=== PATIENT | male | born 1945 | race Caucasian/White ===

== ENCOUNTER → 2016-12-16 | Outpatient (CLI) | payer MEDICARE, OTHER ==
[2016-12-16 14:38] LABS: BASO # 0.1 x10^3/uL (0.0-0.2); BASO % 1 % (0-3); EOS # 0.4 x10^3/uL (0.0-0.7); EOS % 4 % (0-3); HEMATOCRIT 39.7 % (39.0-53.0); HEMOGLOBIN 13.8 g/dL (13.0-17.5); LYMPH # 4.8 x10^3/uL (1.0-4.8); LYMPH % 40 % (24-48); MEAN CORPUSCULAR HEMOGLOBIN 33 pg (25-35); MEAN CORPUSCULAR HGB CONC 35 g/dL (31-37); MEAN CORPUSCULAR VOLUME 95 fL (79-100); MONO # 0.9 x10^3/uL (0.0-1.1); MONO % 8 % (0-9); NEUT # 5.6 x10^3uL (1.8-7.7); NEUT % 48 % (31-73); PLATELET COUNT 250 x10^3/uL (140-400); RED CELL DISTRIBUTION WIDTH 13.3 % (11.5-14.5); WHITE BLOOD COUNT 11.8 x10^3/uL (4.0-11.0)
[2016-12-16 14:44] LABS: ALBUMIN 3.7 g/dL (3.4-5.0); ALBUMIN/GLOBULIN RATIO 1.1 (1.0-1.7); CALCIUM 9.2 mg/dL (8.5-10.1); CREATININE 1.1 mg/dL (0.7-1.3); GFR 65.6; POTASSIUM 4.5 mmol/L (3.5-5.1); TOTAL BILIRUBIN 0.5 mg/dL (0.2-1.0)
== END | disposition home or self-care (01) ==
LOC: LAB 13:36
PROVIDERS: ATTEND Internal Medicine Hematology & Oncology
DX: C34.11 Malignant neoplasm of upper lobe, right bronchus or lung (principal)
CPT/HCPCS: 36415; 80053; 85027

== ENCOUNTER → 2016-12-26 | Outpatient (CLI) | payer MEDICARE, OTHER ==
[~2016-12-26] MED LIST: IOHEXOL 300 MG/ML 75 ML VIAL. IV ONE
--- NOTE | 2016-12-26 10:02 | RAD ---
CT of the chest with contrast, 12/26/2016: History: Follow-up lung cancer Multidetector CT imaging was performed following an IV bolus injection of iodinated contrast material. Comparison is made to a study from 12/28/2015 There has been a previous right upper lobectomy. There is a calcified granuloma posteriorly in the right lower lobe. There are a few scattered parenchymal scars. There is mild dependent atelectasis in both lungs. No pulmonary mass is identified. There is no evidence of pleural fluid. There is mild calcific plaquing of the thoracic aorta without evidence of aneurysm. Moderate scattered coronary artery calcifications are present. No mediastinal or hilar adenopathy is detected. A small cyst is again noted in the left lobe of the liver. Gallstones are present. No pericholecystic edema is seen. There are moderate scattered hypertrophic degenerative changes in the spine. IMPRESSION: 1. No evidence of tumor recurrence in the chest.. 2. Moderate coronary artery calcifications. 3. Cholelithiasis. PQRS Compliance Statement: One or more of the following individualized dose reduction techniques were utilized for this examination: 1. Automated exposure control 2. Adjustment of the mA and/or kV according to patient size 3. Use of iterative reconstruction technique
== END | disposition home or self-care (01) ==
LOC: CT 09:10
PROVIDERS: ATTEND Internal Medicine Hematology & Oncology
DX: I25.10 Atherosclerotic heart disease of native coronary artery without angina pectoris (principal); C34.11 Malignant neoplasm of upper lobe, right bronchus or lung; K80.20 Calculus of gallbladder without cholecystitis without obstruction
CPT/HCPCS: 71260; Q9967

== ENCOUNTER → 2017-12-22 | Outpatient (CLI) | payer MEDICARE, OTHER ==
[2017-12-22 13:01] LABS: BASO # 0.1 x10^3/uL (0.0-0.2); BASO % 1 % (0-3); EOS # 0.4 x10^3/uL (0.0-0.7); EOS % 4 % (0-3); HEMATOCRIT 40.7 % (39.0-53.0); HEMOGLOBIN 14.1 g/dL (13.0-17.5); LYMPH # 4.1 x10^3/uL (1.0-4.8); LYMPH % 36 % (24-48); MEAN CORPUSCULAR HEMOGLOBIN 33 pg (25-35); MEAN CORPUSCULAR HGB CONC 35 g/dL (31-37); MEAN CORPUSCULAR VOLUME 95 fL (79-100); MONO # 0.7 x10^3/uL (0.0-1.1); MONO % 7 % (0-9); NEUT # 5.9 x10^3uL (1.8-7.7); NEUT % 53 % (31-73); PLATELET COUNT 292 x10^3/uL (140-400); RED BLOOD COUNT 4.28 x10^6/uL (4.30-5.70); RED CELL DISTRIBUTION WIDTH 12.9 % (11.5-14.5); WHITE BLOOD COUNT 11.3 x10^3/uL (4.0-11.0)
[2017-12-22 13:09] LABS: ALBUMIN 3.6 g/dL (3.4-5.0); ALBUMIN/GLOBULIN RATIO 1.1 (1.0-1.7); CALCIUM 8.7 mg/dL (8.5-10.1); CREATININE 1.2 mg/dL (0.7-1.3); GFR 59.2; POTASSIUM 4.2 mmol/L (3.5-5.1); TOTAL BILIRUBIN 0.4 mg/dL (0.2-1.0); TOTAL PROTEIN 6.9 g/dL (6.4-8.2)
== END | disposition home or self-care (01) ==
LOC: LAB 11:57
PROVIDERS: ATTEND Internal Medicine Hematology & Oncology
DX: C34.11 Malignant neoplasm of upper lobe, right bronchus or lung (principal)
CPT/HCPCS: 36415; 80053; 85025

== ENCOUNTER → 2018-01-04 | Outpatient (CLI) | payer MEDICARE, OTHER ==
--- NOTE | 2018-01-04 09:39 | RAD ---
Examination: CT chest without contrast HISTORY: History of lung nodules COMPARISON: 12/26/2016 TECHNIQUE: Axial CT images of the chest were performed without contrast. Coronal and sagittal reformats are performed Exposure: One or more of the following individualized dose reduction techniques were utilized for this examination: 1. Automated exposure control 2. Adjustment of the mA and/or kV according to patient size 3. Use of iterative reconstruction technique. FINDINGS: The visualized thyroid gland grossly appears unremarkable. Central airways are patent. The heart size grossly appears unremarkable. Coronary artery calcifications identified. The caliber of the aorta grossly appears unremarkable. Mild aortic atherosclerosis. No radiologically significant mediastinal lymphadenopathy identified. 3 mm groundglass nodule identified in the left upper lobe lung. Calcified granuloma identified in the right lung base. Cystic structure measuring 2.1 cm identified in the liver grossly similar to prior exam likely cyst similar to prior exam. Cholelithiasis. The visualized adrenal glands grossly appears unremarkable Moderate degenerative changes thoracic spine. IMPRESSION: 1. 3 mm groundglass nodule identified in the left upper lobe of the lung grossly similar to prior exam. 2. Coronary artery calcifications. 3. Cholelithiasis. Electronically signed by: Narendra Blanchard MD (01/04/2018 9:36 AM) [id number]
== END | disposition home or self-care (01) ==
LOC: CT 08:35
PROVIDERS: ATTEND Internal Medicine Hematology & Oncology
DX: D72.829 Elevated white blood cell count, unspecified (principal); I25.10 Atherosclerotic heart disease of native coronary artery without angina pectoris; K80.20 Calculus of gallbladder without cholecystitis without obstruction; R91.8 Other nonspecific abnormal finding of lung field
CPT/HCPCS: 71250

== ENCOUNTER → 2018-11-16 | Day surgery (SDC) | payer MEDICARE, OTHER ==
[~2018-11-16] MED LIST changes: +ALBUTEROL SULFATE 2.5 MG/3 ML NEBU. NEB PRN; +ASPI-630 PO; +ATROPINE 0.5 MG/5 ML DISP.SYRIN. IV PRN; +ESOM20CA PO; -IOHEXOL 300 MG/ML 75 ML VIAL. IV ONE; +IV RINGERS SOLUTION,LACTATED 1,000 ML IV SCH; +LIDOCAINE 2% PF Vial for OR 5 ML VIAL. ONE; +LISI-378 PO; +NALOXONE 0.4 MG/ML VIAL. IV PRN; +NIFE30TA38 PO; +ONDANSETRON PF 4 MG/2 ML VIAL. IV PRN; +PROPOFOL 20 ML IV ONE; +PROPOFOL 40 ML IV ONE; +SIMV40TA PO; +TIOT18CA IH; +TRAM50TA PO; +diphenhydrAMINE 50 MG/ML VIAL IV PRN
[2018-11-16 13:43] VITALS: BP 115/69
--- NOTE | 2018-11-18 16:06 | PATHOLOGY ---
[facility] Accession Number: [id number] . 01 Material submitted: . PART A: rectum - POLYP RECTUM AT 20CM PART B: rectum - POLYP RECTUM AT 8CM . 01 Clinical history: . Screening colonoscopy . 02 Diagnosis: A. Colon, rectum, 20 cm, biopsy: - Adenomatous colonic mucosa, multiple fragments. . B. Colon, rectum, 8 cm, biopsy: - Invasive moderate to poorly differentiated adenocarcinoma. - Multiple additional fragments of adenomatous colonic mucosa. . (Please see comment) . (SKM:pe[place]ton; 11/18/2018) MBR/11/18/2018 . 02 Comment: Part B of this case has also been reviewed by Dr. Leland Clifton who agrees with the diagnosis. . The findings in this case were discussed with Dr. Dallas De Souza on 11/18/18. . (DANIAL:pe[place]; 11/18/2018) . 02 Electronically signed: . Ganesh Willingham MD, Pathologist NPI- [id number] . 01 Gross description: . A. Received in formalin labeled "Diego Braga, rectum at 20," are multiple segments of alonzo soft tissue measuring 1.8 x 1.1 x 0.2 cm in aggregate dimensions. The specimen is filtered and entirely submitted in cassette A1. . B. Received in formalin labeled "OmiAllisonh, rectum at 8," are multiple segments of alonzo soft tissue measuring 4.6 x 3.2 x 1.2 cm in aggregate dimensions. The specimen is filtered and entirely submitted in cassette B1 through B1 through B8. (TSD; 11/17/2018) TOB/TOB . 02 Pathologist provided ICD-10: C20 . 02 CPT . 752940, 240374 Specimen Comment: A courtesy copy of this report has been sent to Specimen Comment: [phone], . Specimen Comment: Report sent to / DR LAGUERRE Performed at: 01 [facility] [address] [facility] [address], [place] [id number] MD Isak Ogden MD Phone: [phone] Performed at: 02 [facility] [address] [place], [place] [id number] MD Rahul Fish MD Phone: [phone]
== END | disposition home or self-care (01) ==
LOC: SURG 11:23
PROVIDERS: ATTEND Surgery
DX: Z12.11 Encounter for screening for malignant neoplasm of colon (principal); C20 Malignant neoplasm of rectum; D12.8 Benign neoplasm of rectum; I10 Essential (primary) hypertension; K21.9 Gastro-esophageal reflux disease without esophagitis; I25.2 Old myocardial infarction; E78.5 Hyperlipidemia, unspecified; J44.9 Chronic obstructive pulmonary disease, unspecified; Z86.010 Personal history of colon polyps; Z79.82 Long term (current) use of aspirin; Z79.899 Other long term (current) drug therapy; Z87.891 Personal history of nicotine dependence; E66.9 Obesity, unspecified; Z68.35 Body mass index [BMI] 35.0-35.9, adult; Z72.89 Other problems related to lifestyle; Z98.890 Other specified postprocedural states; M19.90 Unspecified osteoarthritis, unspecified site; Z85.118 Personal history of other malignant neoplasm of bronchus and lung
CPT/HCPCS: 45385; 88305; J2704; J7120; J2001

== ENCOUNTER → 2018-12-10 | Outpatient (CLI) | payer MEDICARE, OTHER ==
[2018-11-16 13:43] VITALS: BP 115/69
[~2018-12-10] MED LIST changes: -ALBUTEROL SULFATE 2.5 MG/3 ML NEBU. NEB PRN; -ATROPINE 0.5 MG/5 ML DISP.SYRIN. IV PRN; -IV RINGERS SOLUTION,LACTATED 1,000 ML IV SCH; -LIDOCAINE 2% PF Vial for OR 5 ML VIAL. ONE; -NALOXONE 0.4 MG/ML VIAL. IV PRN; -ONDANSETRON PF 4 MG/2 ML VIAL. IV PRN; -PROPOFOL 20 ML IV ONE; -PROPOFOL 40 ML IV ONE; -diphenhydrAMINE 50 MG/ML VIAL IV PRN
[2018-12-10] MEDS: IOHEXOL 300 MG/ML 75 ML VIAL. IV ONE (08:29)
[2018-12-10] MEDS: IOHEXOL 240 MG/ML 50ML VIAL. PO ONE (08:29)
--- NOTE | 2018-12-10 09:06 | RAD ---
CT scan of the chest and abdomen with contrast 12/10/2018 CLINICAL HISTORY: History of lung cancer. Recently diagnosed rectal cancer. TECHNIQUE: After the oral and intravenous administration contrast, contiguous, 3 mm axial sections were obtained through the chest, abdomen and pelvis. 60 cc of Omnipaque 300 were administered intravenously during this examination. One or more of the following individualized dose reduction techniques were utilized for this study: 1. Automated exposure control. 2. Adjustment of the mA and/or kV according to patient size. 3. Use of iterative reconstruction technique. FINDINGS: Comparison study is dated 01/04/2018. Surgical clips are seen within the right hilum and mediastinum. The patient is post right upper lobectomy. No hilar, mediastinal or axillary lymphadenopathy is seen. Atherosclerotic calcification of the thoracic aorta and its branches is noted. The thoracic aorta is tortuous but tapers normally. Extensive coronary artery calcifications are seen. The heart is normal in size. A 7 mm calcified granuloma seen involving the right lower lobe. This is unchanged. No noncalcified pulmonary nodule is seen. No acute pulmonary infiltrate is noted. No pneumothorax or pleural effusion is seen. A 2.3 cm rounded low-attenuation lesion is seen involving left lobe of the liver consistent with a hepatic cyst. This is unchanged. The spleen, pancreas, adrenal glands and right kidney are within normal limits. A 8 mm rounded low-attenuation lesion is seen involving the midpole of the left kidney. Likely represents a cyst. A 3 mm nonobstructing calculus is seen involving the mid/lower pole of the left kidney. Atherosclerotic calcification abdominal aorta and its branches is seen. The abdominal aorta tapers normally. Calcified gallstones are seen within the gallbladder which is contracted. No free fluid or free air is within the abdomen. There is no evidence of bowel obstruction. A midline ventral hernia is seen which contains fat. The hernia sac measures 8.2 cm in greatest diameter. No retroperitoneal lymphadenopathy is seen. Very mild S-shaped curvature of the thoracolumbar spine is seen. Degenerative changes are seen involving the thoracic and lumbar spine. IMPRESSION: No acute abnormality is seen. There is no CT evidence of recurrent or metastatic disease involving the chest or abdomen. Electronically signed by: Gonsalo Shaikh MD (12/10/2018 9:03 AM) [id number]
== END | disposition home or self-care (01) ==
LOC: CT 07:48
PROVIDERS: ATTEND Internal Medicine Hematology & Oncology
DX: C20 Malignant neoplasm of rectum (principal); I70.0 Atherosclerosis of aorta; I77.810 Thoracic aortic ectasia; I25.10 Atherosclerotic heart disease of native coronary artery without angina pectoris; J84.10 Pulmonary fibrosis, unspecified; K76.9 Liver disease, unspecified; K80.20 Calculus of gallbladder without cholecystitis without obstruction; K82.0 Obstruction of gallbladder; K43.9 Ventral hernia without obstruction or gangrene; Z85.118 Personal history of other malignant neoplasm of bronchus and lung; Z92.21 Personal history of antineoplastic chemotherapy; Z90.2 Acquired absence of lung [part of]
CPT/HCPCS: 71260; 74160; Q9966; Q9967

== ENCOUNTER → 2019-01-28 | Outpatient (CLI) | payer MEDICARE, OTHER ==
[2018-11-16 13:43] VITALS: BP 115/69
[~2019-01-28] MED LIST changes: +IOHEXOL 240 MG/ML 50ML VIAL. ONE; +IOHEXOL 300 MG/ML 75 ML VIAL. IV ONE
--- NOTE | 2019-01-28 16:30 | RAD ---
CT of the abdomen with contrast, 01/28/2019: HISTORY: Recent surgery, hot and cold flashes, possible ascites Multidetector CT imaging was performed following oral and IV administration of contrast. Comparison is made to a study from 12/10/2018. Extensive coronary artery calcifications are present. A calcified granuloma is present in the right base. There is a simple appearing cyst in the left lobe of the liver. No bile duct dilatation is seen. Dense gallstones are present in the gallbladder. The gallbladder wall is not thickened and no pericholecystic edema is evident. The pancreas shows no abnormality. The spleen is of normal size. There is a tiny intrarenal calculus on the left. The renal collecting systems are not dilated. There is a tiny low-density lesion in the anterior aspect of the left kidney which is too small to definitively characterize but is probably a cyst. The adrenal glands are unremarkable. There is moderate aortoiliac calcific plaquing no abdominal adenopathy is seen. The bowel loops are not dilated. No free fluid or free air is evident in the abdomen. There is streaky increased density in the subcutaneous soft tissues of the lower abdomen compatible with postsurgical change. This lies near the level where a fat-containing umbilical hernia was evident on the previous study. Within this area of apparent inflammation there is a 2.7 x 4.8 cm structure containing gas and fluid. This may represent a seroma/hematoma, infected hematoma or abscess. Moderate multilevel degenerative changes are present in the spine. IMPRESSION: 1. Cholelithiasis. 2. Hepatic and left renal cysts. 3. Nonobstructing left intrarenal calculus. 4. Extensive coronary artery calcifications. 5. Postsurgical change involving the anterior abdominal wall with a small subcutaneous fluid collection as described above. Abscess is a possibility. Note: The findings were called to personnel in Dr. Hernandez's office at 4:26 PM on 01/28/2019. They will relay this report to him. PQRS Compliance Statement: One or more of the following individualized dose reduction techniques were utilized for this examination: 1. Automated exposure control 2. Adjustment of the mA and/or kV according to patient size 3. Use of iterative reconstruction technique Electronically signed by: Akin Javier MD (01/28/2019 4:27 PM) [facility]
== END | disposition home or self-care (01) ==
LOC: CT 10:16
PROVIDERS: ATTEND Family Medicine
DX: K80.20 Calculus of gallbladder without cholecystitis without obstruction (principal); N20.0 Calculus of kidney; I70.0 Atherosclerosis of aorta; I25.10 Atherosclerotic heart disease of native coronary artery without angina pectoris; I70.8 Atherosclerosis of other arteries; K42.9 Umbilical hernia without obstruction or gangrene; J84.10 Pulmonary fibrosis, unspecified; K76.89 Other specified diseases of liver; I10 Essential (primary) hypertension
CPT/HCPCS: 74160; Q9967

== ENCOUNTER 2019-02-05 10:31 | Emergency (ER) | payer MEDICARE, OTHER ==
[~2019-02-05 10:31] MED LIST changes: -IOHEXOL 240 MG/ML 50ML VIAL. ONE; -IOHEXOL 300 MG/ML 75 ML VIAL. IV ONE
[2019-02-05 10:47] VITALS: BP 164/69
--- NOTE | 2019-02-05 11:28 | PHYS DOC ---
Past History Past Medical History: High Cholesterol, Hypertension Alcohol Use: None Drug Use: None Adult General Chief Complaint Chief Complaint: WOUND CHECK HPI HPI 73-year-old male presents with fluid leaking from his abdominal incision. The patient had abdominal surgery. His incision has been healing well. The patient has had drainage that is a light yellow color this started to come out of a small hole in the incision yesterday. It continues to ooze out slowly today. Patient denies any fever or chills. It is not painful. The patient had a CT scan recently to see how things are doing. There was some concern for possible abscess. He followed up with surgical consult and they determined that was no abscess. This was all prior to the drainage. Patient is feeling pretty normal. He is wants to make sure this drainage isn't a problem. He is already on Augmen tin. Review of Systems Review of Systems Constitutional: Denies fever or chills [] Eyes: Denies change in visual acuity, redness, or eye pain [] HENT: Denies nasal congestion or sore throat [] Respiratory: Denies cough or shortness of breath [] Cardiovascular: No additional information not addressed in HPI [] GI: Denies abdominal pain, nausea, vomiting, bloody stools or diarrhea [] : Denies dysuria or hematuria [] Musculoskeletal: Denies back pain or joint pain [] Integument: Fluid leaking from central abdominal incision site[] Neurologic: Denies headache, focal weakness or sensory changes [] Endocrine: Denies polyuria or polydipsia [] All other systems were reviewed and found to be within normal limits, except as documented in this note. Allergies Allergies Allergies Coded Allergies Type Severity Reaction Last Updated Verified No Known Drug Allergies 12/22/14 No Physical Exam Physical Exam Constitutional: Well developed, well nourished, no acute distress, non-toxic appearance. [] HENT: Normocephalic, atraumatic, bilateral external ears normal, oropharynx moist, no oral exudates, nose normal. [] Eyes: PERRLA, EOMI, conjunctiva normal, no discharge. [] Neck: Normal range of motion, no tenderness, supple, no stridor. [] Cardiovascular:Heart rate regular rhythm, no murmur [] Lungs & Thorax: Bilateral breath sounds clear to auscultation [] Abdomen: Bowel sounds normal, soft, no tenderness, no masses, no pulsatile masses. [] Skin: Light yellow fluid oozing from a 2 mm along the central incision of the patient's abdomen. No pain with palpation, no erythema or warmth.[] Back: No tenderness, no CVA tenderness. [] Extremities: No tenderness, no cyanosis, no clubbing, ROM intact, no edema. [] Neurologic: Alert and oriented X 3, normal motor function, normal sensory function, no focal deficits noted. [] Psychologic: Affect normal, judgement normal, mood normal. [] Current Patient Data Vital Signs Vital Signs Date Time Temp Pulse Resp B/P (MAP) Pulse Ox O2 Delivery O2 Flow Rate FiO2 02/05/19 10:47 98.1 74 18 99 Room Air EKG EKG [] Radiology/Procedures Radiology/Procedures [] Course & Med Decision Making Course & Med Decision Making Pertinent Labs and Imaging studies reviewed. (See chart for details) The fluid does not appear to be infectious. It is a thin serous color. I did go ahead and collect some of the fluid and sent to the lab as a culture. He is already on antibiotics. I do not see overt signs of infection. I have advised that he notify the surgeon of this new finding. I believe he can be safely discharged. I have explained to the patient if the area becomes red and hot expanding outward from his normal incision, that this could be a sign of infection. I also told him that he must immediately return if he develops a fever. I performed a bedside ultrasound which showed a possible fluid collection 2 inches below the area of drainage. This fluid collection is roughly 2 cm by a 2-1/2 cm. It is about 2 cm deep below the skin. We will cover the wound with clean gauze to help absorb the fluid. Patient is stable for discharge at this time. [] Dragon Disclaimer Dragon Disclaimer This electronic medical record was generated, in whole or in part, using a voice recognition dictation system. Departure Departure: Impression: Primary Impression: Seroma, postoperative Disposition: 01 HOME, SELF-CARE Condition: STABLE Referrals: LIDIA LAGUERRE MD (PCP) Patient Instructions: Wound Check Problem Qualifiers Primary Impression: Seroma, postoperative Surgical complication system/body Area: digestive system Procedure type: digestive system Qualified Codes: K91.872 - Postprocedural seroma of a digestive system organ or structure following a digestive system procedure CARRILLO WARREN DO Feb 05, 2019 11:28
== END 2019-02-05 11:30 | disposition home or self-care (01) ==
LOC: ER 10:31
DX: K91.872 Postprocedural seroma of a digestive system organ or structure following a digestive system procedure (principal); E78.00 Pure hypercholesterolemia, unspecified; I10 Essential (primary) hypertension
CPT/HCPCS: 87070; 99285

== ENCOUNTER → 2019-06-27 | Outpatient (CLI) | payer MEDICARE, OTHER ==
[~2019-06-27] MED LIST changes: +NIFE-11 PO; -NIFE30TA38 PO
[2019-06-27 14:40] LABS: BASO # 0.1 x10^3/uL (0.0-0.2); BASO % 1 % (0-3); EOS # 0.3 x10^3/uL (0.0-0.7); EOS % 2 % (0-3); HEMATOCRIT 41.4 % (39.0-53.0); HEMOGLOBIN 14.1 g/dL (13.0-17.5); LYMPH # 5.1 x10^3/uL (1.0-4.8); LYMPH % 44 % (24-48); MEAN CORPUSCULAR HEMOGLOBIN 32 pg (25-35); MEAN CORPUSCULAR HGB CONC 34 g/dL (31-37); MEAN CORPUSCULAR VOLUME 94 fL (79-100); MONO # 1.1 x10^3/uL (0.0-1.1); MONO % 9 % (0-9); NEUT # 5.1 x10^3uL (1.8-7.7); NEUT % 44 % (31-73); PLATELET COUNT 292 x10^3/uL (140-400); RED BLOOD COUNT 4.39 x10^6/uL (4.30-5.70); RED CELL DISTRIBUTION WIDTH 13.4 % (11.5-14.5); WHITE BLOOD COUNT 11.7 x10^3/uL (4.0-11.0)
[2019-06-27 14:53] LABS: ALBUMIN 3.5 g/dL (3.4-5.0); ALBUMIN/GLOBULIN RATIO 1.1 (1.0-1.7); CALCIUM 8.6 mg/dL (8.5-10.1); CREATININE 1.2 mg/dL (0.7-1.3); GFR 58.9; POTASSIUM 4.3 mmol/L (3.5-5.1); TOTAL BILIRUBIN 0.5 mg/dL (0.2-1.0); TOTAL PROTEIN 6.8 g/dL (6.4-8.2)
== END | disposition home or self-care (01) ==
LOC: LAB 14:03
PROVIDERS: ATTEND Internal Medicine Hematology & Oncology
DX: C20 Malignant neoplasm of rectum (principal)
CPT/HCPCS: 36415; 80053; 82378; 85025

== ENCOUNTER → 2019-09-06 | Outpatient (CLI) | payer MEDICARE, OTHER ==
[2019-09-06 14:02] LABS: BASO # 0.1 x10^3/uL (0.0-0.2); BASO % 1 % (0-3); EOS # 0.2 x10^3/uL (0.0-0.7); EOS % 2 % (0-3); HEMATOCRIT 43.7 % (39.0-53.0); HEMOGLOBIN 14.6 g/dL (13.0-17.5); LYMPH # 4.6 x10^3/uL (1.0-4.8); LYMPH % 43 % (24-48); MEAN CORPUSCULAR HEMOGLOBIN 32 pg (25-35); MEAN CORPUSCULAR HGB CONC 34 g/dL (31-37); MEAN CORPUSCULAR VOLUME 96 fL (79-100); MONO % 9 % (0-9); NEUT # 4.9 x10^3uL (1.8-7.7); NEUT % 46 % (31-73); PLATELET COUNT 292 x10^3/uL (140-400); RED BLOOD COUNT 4.55 x10^6/uL (4.30-5.70); RED CELL DISTRIBUTION WIDTH 13.1 % (11.5-14.5); WHITE BLOOD COUNT 10.9 x10^3/uL (4.0-11.0)
[2019-09-06 16:43] LABS: ALBUMIN 3.6 g/dL (3.4-5.0); ALBUMIN/GLOBULIN RATIO 1.1 (1.0-1.7); CALCIUM 9.1 mg/dL (8.5-10.1); CREATININE 1.1 mg/dL (0.7-1.3); GFR 65.1; POTASSIUM 4.7 mmol/L (3.5-5.1); TOTAL BILIRUBIN 0.4 mg/dL (0.2-1.0)
== END | disposition home or self-care (01) ==
LOC: LAB 13:21
PROVIDERS: ATTEND Internal Medicine Hematology & Oncology
DX: C20 Malignant neoplasm of rectum (principal)
CPT/HCPCS: 36415; 80053; 82378; 85025

== ENCOUNTER → 2019-11-29 | Outpatient (CLI) | payer MEDICARE, OTHER ==
[2019-11-29 13:44] LABS: BASO % 0 % (0-3); EOS # 0.2 x10^3/uL (0.0-0.7); EOS % 1 % (0-3); HEMATOCRIT 42.5 % (39.0-53.0); HEMOGLOBIN 14.1 g/dL (13.0-17.5); LYMPH # 4.9 x10^3/uL (1.0-4.8); LYMPH % 40 % (24-48); MEAN CORPUSCULAR HEMOGLOBIN 32 pg (25-35); MEAN CORPUSCULAR HGB CONC 33 g/dL (31-37); MEAN CORPUSCULAR VOLUME 97 fL (79-100); MONO % 8 % (0-9); NEUT # 6.2 x10^3uL (1.8-7.7); NEUT % 50 % (31-73); PLATELET COUNT 318 x10^3/uL (140-400); RED BLOOD COUNT 4.39 x10^6/uL (4.30-5.70); RED CELL DISTRIBUTION WIDTH 12.8 % (11.5-14.5); WHITE BLOOD COUNT 12.3 x10^3/uL (4.0-11.0)
[2019-11-29 14:02] LABS: ALBUMIN 3.5 g/dL (3.4-5.0); CREATININE 1.1 mg/dL (0.7-1.3); GFR 65.1; POTASSIUM 4.2 mmol/L (3.5-5.1); TOTAL BILIRUBIN 0.3 mg/dL (0.2-1.0); TOTAL PROTEIN 7.1 g/dL (6.4-8.2)
== END | disposition home or self-care (01) ==
LOC: LAB 12:33
PROVIDERS: ATTEND Internal Medicine Hematology & Oncology
DX: C20 Malignant neoplasm of rectum (principal)
CPT/HCPCS: 36415; 80053; 82378; 85025

== ENCOUNTER → 2019-12-05 | Outpatient (CLI) | payer MEDICARE, OTHER ==
[~2019-12-05] MED LIST changes: +IOHEXOL 240 MG/ML 50ML VIAL. ONE; +IOHEXOL 240 MG/ML 50ML VIAL. PO ONE; +IOHEXOL 300 MG/ML 75 ML VIAL. IV ONE
--- NOTE | 2019-12-05 12:21 | RAD ---
CT CHEST ABD PELVIS W/CONTRAST Clinical Indication: Rectal cancer COMPARISON: 01/20/2019 TECHNIQUE: Multiple contiguous axial images were obtained throughout the chest, abdomen, and pelvis with the use of IV contrast. Axial images were reformatted into coronal and sagittal planes. 75 mL Omnipaque 350 was administered. One or more of the following dose reduction techniques were utilized: Automated exposure control (AEC), Adjustment of mA and/or kV according to patient size, Use of iterative reconstruction technique such as ASiR, CT scan done according to ALARA and image gently/image wisely. Findings: The thyroid is symmetric. There is no axillary, mediastinal, or hilar adenopathy. Atherosclerosis of the thoracic aorta The cardiac size is normal. Coronary artery atherosclerotic disease There is no pericardial effusion. The central airways are patent. Postsurgical changes of right upper lobectomy. No pulmonary mass or consolidation. Centrilobular emphysema. Calcified pulmonary granuloma. No pleural effusion is observed. There is no pneumothorax. Stable hepatic cyst. The liver, spleen, pancreas, and adrenal glands are otherwise unremarkable. Cholelithiasis. The kidneys are unremarkable. There is no significant mesenteric or retroperitoneal adenopathy identified. There is no evidence of free intraperitoneal fluid or pneumoperitoneum. Rectosigmoid anastomosis. Otherwise, normal caliber large and small bowel. Normal appendix. The bladder and distal ureters are unremarkable. There is no significant pelvic ascites. No significant iliac or inguinal adenopathy is identified. Moderate aortoiliac atherosclerotic disease. Prominent infraumbilical abdominal wall hernia containing loops of normal caliber bowel and part of the bladder. Fat-containing bilateral inguinal hernias. No aggressive lytic or blastic osseous lesions IMPRESSION: No evidence of recurrent or metastatic disease. No mass or lymphadenopathy. Electronically signed by: Zechariah Landrum MD (12/05/2019 12:18 PM) [id number]
== END | disposition home or self-care (01) ==
LOC: CT 09:30
PROVIDERS: ATTEND Internal Medicine Hematology & Oncology
DX: C20 Malignant neoplasm of rectum (principal); J43.2 Centrilobular emphysema; K40.20 Bilateral inguinal hernia, without obstruction or gangrene, not specified as recurrent; K42.9 Umbilical hernia without obstruction or gangrene; K80.20 Calculus of gallbladder without cholecystitis without obstruction; I25.10 Atherosclerotic heart disease of native coronary artery without angina pectoris; I70.0 Atherosclerosis of aorta; J84.10 Pulmonary fibrosis, unspecified; K76.89 Other specified diseases of liver
CPT/HCPCS: 71260; 74177; Q9966; Q9967

== ENCOUNTER → 2019-12-23 | Outpatient (CLI) | payer MEDICARE, OTHER ==
[~2019-12-23] MED LIST changes: -IOHEXOL 240 MG/ML 50ML VIAL. ONE; -IOHEXOL 240 MG/ML 50ML VIAL. PO ONE; -IOHEXOL 300 MG/ML 75 ML VIAL. IV ONE
--- NOTE | 2019-12-23 16:20 | RAD ---
LUMBAR SPINE 2-3V History: Low back pain Comparison: None. Findings: 3 views of the lumbar spine are submitted. Lumbar vertebral body stature is maintained. There is grade 1 anterior spondylolisthesis at L4-5 and negligible posterior subluxation L3 relative L4. There is moderate to severe degenerative disc disease at L3-4, to lesser degree at L4-5 and L2-3 and minimally at L5-S1. There is multilevel spondylosis greatest L2-3 through L4-5. There is multilevel lumbar facet degenerative change greater inferiorly of the lumbar spine. There is diffuse atherosclerotic calcification of the abdominal aorta. There is very mild lumbar levoscoliosis. Impression: 1. There is multilevel lumbar degenerative disc disease greatest at L3-4. There is multilevel lumbar spondylosis and facet degenerative change. There is mild abnormal alignment as stated. Electronically signed by: Zechariah Quintana MD (12/23/2019 4:17 PM) [id number]
== END | disposition home or self-care (01) ==
LOC: DXRAD 14:49
PROVIDERS: ATTEND Family Medicine
DX: M47.816 Spondylosis without myelopathy or radiculopathy, lumbar region (principal); M51.37 Other intervertebral disc degeneration, lumbosacral region; M43.16 Spondylolisthesis, lumbar region; I70.0 Atherosclerosis of aorta
CPT/HCPCS: 72100

== ENCOUNTER → 2020-03-07 | Outpatient (CLI) | payer MEDICARE, OTHER ==
[2020-03-07 14:08] LABS: BASO # 0.1 x10^3/uL (0.0-0.2); BASO % 1 % (0-3); EOS # 0.2 x10^3/uL (0.0-0.7); EOS % 2 % (0-3); HEMATOCRIT 42.2 % (39.0-53.0); HEMOGLOBIN 14.1 g/dL (13.0-17.5); LYMPH # 5.2 x10^3/uL (1.0-4.8); LYMPH % 46 % (24-48); MEAN CORPUSCULAR HEMOGLOBIN 33 pg (25-35); MEAN CORPUSCULAR HGB CONC 34 g/dL (31-37); MEAN CORPUSCULAR VOLUME 97 fL (79-100); MONO % 9 % (0-9); NEUT # 4.8 x10^3uL (1.8-7.7); NEUT % 43 % (31-73); PLATELET COUNT 306 x10^3/uL (140-400); RED BLOOD COUNT 4.34 x10^6/uL (4.30-5.70); RED CELL DISTRIBUTION WIDTH 12.8 % (11.5-14.5); WHITE BLOOD COUNT 11.3 x10^3/uL (4.0-11.0)
[2020-03-07 14:22] LABS: ALBUMIN 3.6 g/dL (3.4-5.0); CALCIUM 9.2 mg/dL (8.5-10.1); CREATININE 1.3 mg/dL (0.7-1.3); GFR 53.7; POTASSIUM 4.2 mmol/L (3.5-5.1); TOTAL BILIRUBIN 0.6 mg/dL (0.2-1.0); TOTAL PROTEIN 7.1 g/dL (6.4-8.2)
== END | disposition home or self-care (01) ==
LOC: LAB 13:39
PROVIDERS: ATTEND Internal Medicine Hematology & Oncology
DX: C20 Malignant neoplasm of rectum (principal)
CPT/HCPCS: 36415; 80053; 82378; 85025

== ENCOUNTER → 2020-05-29 | Outpatient (CLI) | payer MEDICARE, OTHER ==
[2020-05-29 14:26] LABS: BASO # 0.1 x10^3/uL (0.0-0.2); BASO % 1 % (0-3); EOS # 0.3 x10^3/uL (0.0-0.7); EOS % 3 % (0-3); HEMATOCRIT 42.4 % (39.0-53.0); HEMOGLOBIN 14.2 g/dL (13.0-17.5); LYMPH # 4.4 x10^3/uL (1.0-4.8); LYMPH % 39 % (24-48); MEAN CORPUSCULAR HEMOGLOBIN 33 pg (25-35); MEAN CORPUSCULAR HGB CONC 34 g/dL (31-37); MEAN CORPUSCULAR VOLUME 97 fL (79-100); MONO # 0.9 x10^3/uL (0.0-1.1); MONO % 8 % (0-9); NEUT # 5.6 x10^3uL (1.8-7.7); NEUT % 50 % (31-73); PLATELET COUNT 297 x10^3/uL (140-400); RED BLOOD COUNT 4.36 x10^6/uL (4.30-5.70); RED CELL DISTRIBUTION WIDTH 13.1 % (11.5-14.5); WHITE BLOOD COUNT 11.3 x10^3/uL (4.0-11.0)
[2020-05-29 14:34] LABS: ALBUMIN 3.6 g/dL (3.4-5.0); ALBUMIN/GLOBULIN RATIO 1.1 (1.0-1.7); CALCIUM 9.2 mg/dL (8.5-10.1); CREATININE 1.1 mg/dL (0.7-1.3); GFR 64.9; POTASSIUM 4.1 mmol/L (3.5-5.1); TOTAL BILIRUBIN 0.4 mg/dL (0.2-1.0)
[2020-05-29 15:02] LABS: % ATYL 20 % (0-0); % BANDS 3 % (0-9); % EOS 1 % (0-5); % LYMPHS 24 % (24-48); % MONOS 9 % (0-10); % SEGS 43 % (35-66)
[2020-05-29 15:03] LABS: PLT ESTIMATE ADEQUATE (ADEQUATE)
== END ==
LOC: LAB 13:35
PROVIDERS: ATTEND Internal Medicine Hematology & Oncology
DX: C20 Malignant neoplasm of rectum (principal)
CPT/HCPCS: 36415; 80053; 82378; 85007; 85025

== ENCOUNTER → 2020-09-11 | Outpatient (CLI) | payer MEDICARE, OTHER ==
[2020-09-11 14:43] LABS: BASO % 0 % (0-3); EOS # 0.1 x10^3/uL (0.0-0.7); EOS % 1 % (0-3); HEMATOCRIT 44.6 % (39.0-53.0); HEMOGLOBIN 14.9 g/dL (13.0-17.5); LYMPH % 47 % (24-48); MEAN CORPUSCULAR HEMOGLOBIN 32 pg (25-35); MEAN CORPUSCULAR HGB CONC 33 g/dL (31-37); MEAN CORPUSCULAR VOLUME 96 fL (79-100); MONO # 0.9 x10^3/uL (0.0-1.1); MONO % 9 % (0-9); NEUT # 4.5 x10^3uL (1.8-7.7); NEUT % 43 % (31-73); PLATELET COUNT 327 x10^3/uL (140-400); RED BLOOD COUNT 4.63 x10^6/uL (4.30-5.70); RED CELL DISTRIBUTION WIDTH 12.8 % (11.5-14.5); WHITE BLOOD COUNT 10.6 x10^3/uL (4.0-11.0)
[2020-09-11 14:46] LABS: ALBUMIN 3.6 g/dL (3.4-5.0); CALCIUM 8.9 mg/dL (8.5-10.1); CREATININE 1.2 mg/dL (0.7-1.3); GFR 58.7; POTASSIUM 4.4 mmol/L (3.5-5.1); TOTAL BILIRUBIN 0.3 mg/dL (0.2-1.0); TOTAL PROTEIN 7.1 g/dL (6.4-8.2)
== END ==
LOC: LAB 14:01
PROVIDERS: ATTEND Internal Medicine Hematology & Oncology
DX: C20 Malignant neoplasm of rectum (principal)
CPT/HCPCS: 36415; 80053; 82378; 85025

== ENCOUNTER → 2020-10-26 | Outpatient (CLI) | payer MEDICARE, OTHER ==
--- NOTE | 2020-10-26 16:56 | RAD ---
CT of the chest without contrast 10/26/2020 INDICATION: History of lung cancer. History of right upper lobectomy. COMPARISON STUDY: CT of the chest abdomen and pelvis December 05, 2019. TECHNIQUE: Multidetector CT imaging of the chest was performed without contrast FINDINGS: Heart size is normal. No pericardial effusion is seen. Dense coronary calcification noted. No pathologically enlarged mediastinal lymph nodes are identified. There is no pneumothorax or pleural effusion. Mild centrilobular emphysematous changes noted. There i s a 3 mm noncalcified nodule in the left upper lobe, similar to prior exam allowing for differences i n slice selection and technique (axial image 34). There is a 4 mm groundglass nodule in the left uppe r lobe which is unchanged (axial image 45). Postsurgical changes in the right hilum are similar. Calc ified granuloma noted in the right lower lobe. Limited visualization of the upper abdomen demonstrate s no acute abnormality. Cholelithiasis noted. Hepatic cysts noted. No acute osseous changes are ident ified. IMPRESSION: 1. No evidence of acute cardiopulmonary process or acute change from prior exam 2. 2 small sub-5 mm pulmonary nodules on the left are grossly unchanged. Attention on follow-up studi es recommended. CT DOSING PQRS STATEMENT: One or more of the following individualized dose reduction techniques were utilized for this examinat ion: 1. Automated exposure control 2. Adjustment of the mA and/or kV according to patient size 3. Use of iterative reconstruction technique Electronically signed by: Santi Kessler MD (10/26/2020 4:54 PM) [id number]
== END ==
LOC: CT 11:09
PROVIDERS: ATTEND Internal Medicine Pulmonary Disease
DX: J43.2 Centrilobular emphysema (principal); R91.1 Solitary pulmonary nodule; Z90.2 Acquired absence of lung [part of]; Z85.118 Personal history of other malignant neoplasm of bronchus and lung
CPT/HCPCS: 71250

== ENCOUNTER → 2020-12-11 | Outpatient (CLI) | payer MEDICARE, OTHER ==
[2020-12-11 14:40] LABS: BASO # 0.1 x10^3/uL (0.0-0.2); BASO % 1 % (0-3); EOS # 0.2 x10^3/uL (0.0-0.7); EOS % 2 % (0-3); HEMATOCRIT 44.2 % (39.0-53.0); HEMOGLOBIN 14.8 g/dL (13.0-17.5); LYMPH # 5.5 x10^3/uL (1.0-4.8); LYMPH % 41 % (24-48); MEAN CORPUSCULAR HEMOGLOBIN 32 pg (25-35); MEAN CORPUSCULAR HGB CONC 34 g/dL (31-37); MEAN CORPUSCULAR VOLUME 96 fL (79-100); MONO # 1.3 x10^3/uL (0.0-1.1); MONO % 10 % (0-9); NEUT # 6.3 x10^3uL (1.8-7.7); NEUT % 47 % (31-73); PLATELET COUNT 328 x10^3/uL (140-400); RED BLOOD COUNT 4.63 x10^6/uL (4.30-5.70); RED CELL DISTRIBUTION WIDTH 12.7 % (11.5-14.5); WHITE BLOOD COUNT 13.3 x10^3/uL (4.0-11.0)
[2020-12-11 14:54] LABS: ALBUMIN 3.8 g/dL (3.4-5.0); CALCIUM 9.4 mg/dL (8.5-10.1); CREATININE 1.1 mg/dL (0.7-1.3); GFR 64.9; POTASSIUM 4.5 mmol/L (3.5-5.1); TOTAL BILIRUBIN 0.5 mg/dL (0.2-1.0); TOTAL PROTEIN 7.5 g/dL (6.4-8.2)
--- NOTE | 2020-12-11 16:54 | RAD ---
INDICATION: Reason: KNEE PAIN / Spl. Instructions: / History: COMPARISON: None. IMPRESSION: Left knee: 4 views obtained. Moderate to severe degenerative changes are identified with mild lateral subluxation of the tibia in relation to the distal femur. Osteophyte formation as well as subchondra l sclerosis and joint space narrowing is identified most severe at the medial and patellofemoral comp artment. Calcific atherosclerosis. Edema of soft tissues. Small joint effusion. Ossific fragments are seen adjacent to the tibia tubercle region as well as adjacent to the patella and could be from oste ophyte formation. Posteriorly there is an ossific density seen which could be from fabella or loose b dayanna. No acute fracture or dislocation. Electronically signed by: Lokesh Cutler MD (12/11/2020 4:52 PM) [id number]
== END ==
LOC: RAD 13:46
PROVIDERS: ATTEND Orthopaedic Surgery
DX: M17.12 Unilateral primary osteoarthritis, left knee (principal); M25.78 Osteophyte, vertebrae; M25.462 Effusion, left knee
CPT/HCPCS: 36415; 73562; 80053; 82378; 85025

== ENCOUNTER → 2020-12-17 | Outpatient (CLI) | payer MEDICARE, OTHER ==
[~2020-12-17] MED LIST changes: +IOHEXOL 240 MG/ML 50ML VIAL. ONE; +IOHEXOL 240 MG/ML 50ML VIAL. PO ONE; +IOHEXOL 300 MG/ML 75 ML VIAL. IV ONE
--- NOTE | 2020-12-17 12:27 | RAD ---
EXAM: Chest, abdomen and pelvis CT with intravenous contrast. HISTORY: Rectal and lung cancer restaging. TECHNIQUE: Computed tomographic images of the chest, abdomen and pelvis were obtained following the a dministration of intravenous contrast. Multiplanar reformatting was performed. *One or more of the following individualized dose reduction techniques were utilized for this examina tion: 1. Automated exposure control. 2. Adjustment of the mA and/or kV according to patient size. 3. Use of iterative reconstruction technique. COMPARISON: 10/26/2020 and 10/05/2019. FINDINGS: Chest: The heart is normal in size. There is calcified atherosclerotic plaque involving the coronary arteries. There is aortic and aortic branch vessel atherosclerosis. No pathologically enlar ged mediastinal or hilar lymph node is seen. There are distal surgical clips. There is no pneumothora x or pleural effusion. There is mild emphysema. There is right hemithorax volume loss due to partial right lung resection. There is stable scarring along the right pleural fissure. There is a calcified granuloma within the posterior right lower lobe. There is a stable 3 mm nodule within the anterior le ft upper lobe. There is degenerative change throughout the thoracic spine. This includes multiple rom dging and partially bridging anterior osteophytes superimposed on endplate remodeling. There is no ac artem or suspicious osseous finding. Abdomen and pelvis: There is a 2.7 cm cyst within the left hepatic lobe. There is a 3 mm hypodense le rachael within the right hepatic lobe which is too small to characterize. The interval stability compare d to the study performed 12/05/2019 favors a benign cyst. There is a phrygian cap within the gallbladde r, an incidental finding. There is cholelithiasis. The pancreas, spleen and adrenal glands are unrema rkable. There is a 2 mm nonobstructing left renal stone. There is a 7 mm simple appearing left renal cyst. Th ere is no hydronephrosis or convincing solid renal lesion. There is no appendicitis. There is moderat e colonic stool. There is a suspected splenule adjacent to the splenic flexure of the colon. There is a surgical anastomosis at the rectosigmoid junction. No suspicious lymph node or metastatic implants is seen. There is a ventral abdominal wall hernia along the inferior aspect of a ventral abdominal w all pannus containing fat and loops of small bowel. There is no evidence of incarceration or industrial maintenance mechanic al obstruction. The prostate is enlarged. There is aortic and aortic branch vessel atherosclerosis. T here is degenerative change involving the spine. There is no acute or suspicious osseous lesion. IMPRESSION: 1. Findings consistent with partial right lung resection and partial colonic resection. There is no c onvincing residual or recurrent malignancy 2. Stable 3 mm nodule within the anterior left upper lobe. Continued attention at the time of follow- up is recommended. 3. Stable small hepatic cysts. There is a tiny hypodense lesion which is also stable in appearance an d too small to characterize. The year of stability favors an additional tiny cyst. 4. Small simple left renal cyst and left nephrolithiasis. Follow-up is not routinely performed for si mple cysts. 5. Pulmonary emphysema. 6. Cholelithiasis. 7. Prostatomegaly. 8. Hernia within a ventral abdominal wall pannus, stable in appearance. Electronically signed by: Adela Hernandez MD (12/17/2020 12:24 PM) [id number]
== END ==
LOC: CT 09:15
PROVIDERS: ATTEND Internal Medicine Hematology & Oncology
DX: C20 Malignant neoplasm of rectum (principal); N28.1 Cyst of kidney, acquired; K80.20 Calculus of gallbladder without cholecystitis without obstruction; J43.9 Emphysema, unspecified; R16.0 Hepatomegaly, not elsewhere classified; K76.89 Other specified diseases of liver; K43.9 Ventral hernia without obstruction or gangrene
CPT/HCPCS: 71260; 74177; Q9967

== ENCOUNTER → 2021-04-25 | Outpatient (CLI) | payer MEDICARE, OTHER ==
[~2021-04-25] MED LIST changes: -IOHEXOL 240 MG/ML 50ML VIAL. ONE; -IOHEXOL 240 MG/ML 50ML VIAL. PO ONE; -IOHEXOL 300 MG/ML 75 ML VIAL. IV ONE
[2021-04-25 15:17] LABS: BASO # 0.1 x10^3/uL (0.0-0.2); BASO % 1 % (0-3); EOS # 0.2 x10^3/uL (0.0-0.7); EOS % 1 % (0-3); HEMATOCRIT 40.3 % (39.0-53.0); HEMOGLOBIN 13.5 g/dL (13.0-17.5); LYMPH # 5.1 x10^3/uL (1.0-4.8); LYMPH % 44 % (24-48); MEAN CORPUSCULAR HEMOGLOBIN 31 pg (25-35); MEAN CORPUSCULAR HGB CONC 34 g/dL (31-37); MEAN CORPUSCULAR VOLUME 94 fL (79-100); MONO # 1.1 x10^3/uL (0.0-1.1); MONO % 9 % (0-9); NEUT # 5.1 x10^3uL (1.8-7.7); NEUT % 44 % (31-73); PLATELET COUNT 307 x10^3/uL (140-400); RED CELL DISTRIBUTION WIDTH 13.6 % (11.5-14.5); WHITE BLOOD COUNT 11.6 x10^3/uL (4.0-11.0)
[2021-04-25 15:33] LABS: ALBUMIN 3.6 g/dL (3.4-5.0); ALBUMIN/GLOBULIN RATIO 1.1 (1.0-1.7); CREATININE 1.1 mg/dL (0.7-1.3); GFR 64.9; POTASSIUM 4.4 mmol/L (3.5-5.1); TOTAL BILIRUBIN 0.6 mg/dL (0.2-1.0); TOTAL PROTEIN 6.9 g/dL (6.4-8.2)
== END ==
LOC: LAB 14:37
PROVIDERS: ATTEND Internal Medicine Hematology & Oncology
DX: C20 Malignant neoplasm of rectum (principal)
CPT/HCPCS: 36415; 80053; 82378; 85025

== ENCOUNTER → 2021-10-23 | Day surgery (SDC) | payer MEDICARE, OTHER ==
[~2021-10-23] MED LIST changes: +ACETAMINOPHEN 325 MG TABLET PO PRN; +ALBUTEROL SULFATE 2.5 MG/3 ML NEBU. NEB PRN; +ATROPINE 0.5 MG/5 ML DISP.SYRIN. IV PRN; +IV RINGERS SOLUTION,LACTATED 1,000 ML IV SCH; +LIDOCAINE 2% PF 5 ML VIAL. ONE; +MIDAZOLAM HCL PF 2 MG/2 ML VIAL. IV PRN; +ONDANSETRON PF 4 MG/2 ML VIAL. IV PRN; +PHENOL ORAL SPRAY 177ML BOTTLE. MM PRN; +PROPOFOL 10,000 MCG/ML (20ML) VIAL IV ONE; +diphenhydrAMINE 50 MG/ML VIAL IV PRN
--- NOTE | 2021-10-23 11:08 | PDOC1 ---
History of Present Illness Reason for Visit: Colonoscopy History of Present Illness 76-year-old male with a history of colon cancer is undergoing colon resection follows up for colonoscopy for surveillance Chief Complaint: None Allergies: Coded Allergies: No Known Drug Allergies (Unverified , 12/22/14) Past Medical History Cardiac: No pertinent hx Pulmonary: No pertinent hx GI: Other (Colon cancer) Heme/Onc: No pertinent hx Hepatobiliary: No pertinent hx Psych: No pertinent hx Musculoskeletal: No pertinent hx Rheumatologic: No pertinent hx Infectious disease: No pertinent hx ENT: No pertinent hx Renal/: No pertinent hx Endocrine: No pertinent hx Dermatology: No pertinent hx Past Surgical History: Colectomy Past Social History Smoke: No Alcohol: none Lives: with Family Review of Systems Review Of Systems Fourteen system , review of systems has been reviewed. See HPI for pertinent positives and negative responses, other gutierrez all other systems are negative, non pertinent or non contributory Constitutional: No: Fever, Chills, Sweats, Weakness, Malaise, Other Eyes: No: Blurry vision, Decreased vision, Double vision, Dry eyes, Excessive tearing, Eye Pain, Itchy Eyes, Loss of vision, Photophobia, Scotomata, Uses contacts, Uses glasses, Other ENT: No: Ear pain, Ear discharge, Nose pain, Nose discharge, Nose congestion, Mouth pain, Mouth swelling, Throat pain, Throat swelling, Other Respiratory: No: Cough, Hemoptysis, Orthopnea, Pleuritic Pain, Shortness of breath, SOB with excertion, Sputum Changes, Stridor, Tachypnea, Wheezing, Other Cardiovascular: No: Chest Pain, Palpitations, Orthopnea, Paroxysmal Noc. Dyspnea, Edema, Lt Headedness, Other Gastrointestinal: No: Nausea, Vomiting, Abdominal Pain, Diarrhea, Constipation, Melena, Hematochezia, Other Genitourinary: No: Change in Menstrual Cycle, Dysmenorrhea, Dyspareunia, Dysuria, Flank Pain, Genital Discharge, Genital Ulcers, Henaturia, Incontinence, Irregular/heavy Menses, Nocturia, Pelvic Pain, Scrotal Mass/pain, Slowing Urinary Stream, Urinary Frequency/urgency, Vulvar/vaginal Symptoms, Other Musculoskeletal: No: Gait Disturbance, Joint Pain, Joint Stiffness, Joint Swelling, Muscle Pain, Muscular Weakness, Pain In:, Swelling In:, Other SKIN: No: Warm, Dry, No Rashes, Cool, Diaphoretic, Cyanotic, Rash, Other Neurological: No: Behavorial Changes, Bowel/Bladder ControlChng, Confusion, Dizziness, Gait Disturbance, Headaches, Impaired Coord/balance, Memory Loss, Numbness/Tingling, Seizures, Speech Problems, Tremors, Visual Changes, Weakness, Other Medications Current Medications Lactated Ringer's 1,000 ml @ 125 mls/hr Q8H IV Last administered on 10/23/21at 10:47; Start 10/23/21 at 08:15; Stop 10/23/21 at 20:14 Acetaminophen (Tylenol) 650 mg 1X PACU PRN PO PAIN; Start 10/23/21 at 08:15; Stop 10/24/21 at 08:14 Midazolam HCl (Versed) 1 mg PRN Q30MIN PRN IV Sedation; Start 10/23/21 at 08:15; Stop 10/24/21 at 08:14 Ondansetron HCl (Zofran) 4 mg PRN Q6HRS PRN IV Nausea, 1st Choice; Start 10/23/21 at 08:15; Stop 10/24/21 at 08:14 Diphenhydramine HCl (Benadryl) 12.5 mg PRN Q2HR PRN IV ITCHING; Start 10/23/21 at 08:15; Stop 10/24/21 at 08:14 Albuterol Sulfate (Ventolin) 2.5 mg PRN 1X PRN NEB Shortness of Breath, Wheezing; Start 10/23/21 at 08:15; Stop 10/24/21 at 08:14 Throat Lozenges (Chloraseptic) 1 spray PRN Q1HR PRN MM Sore Throat; Start 10/23/21 at 08:15; Stop 10/24/21 at 08:14 Atropine Sulfate (ATROPINE 0.5mg SYRINGE) 0.5 mg PRN Q2MIN PRN IV BRADYCARDIA; Start 10/23/21 at 08:15; Stop 10/24/21 at 08:14 Active Scripts Active Reported Spiriva (Tiotropium [place]) 18 Mcg Cap.w.dev 1 Cap IH DAILY Tramadol Hcl (Tramadol HCl) 50 Mg Tablet 50 Mg PO PRN Q6HRS PRN Aspirin 81 Mg Tab.chew 81 Mg PO DAILY Zocor (Simvastatin) 40 Mg Tablet 1 Tab PO DAILY Zestril (Lisinopril) 20 Mg Tablet 1 Tab PO DAILY Adalat Cc (Nifedipine) 30 Mg Tablet.er 1 Tab PO DAILY Nexium Capsule (Esomeprazole Magnesium) 20 Mg Capsule.dr 1 Cap PO DAILY Exam Vital Signs Vital Signs Date Time Temp Pulse Resp B/P (MAP) Pulse Ox O2 Delivery O2 Flow Rate FiO2 10/23/21 10:35 97.4 67 16 153/80 (104) 97 Room Air General Appearance: Alert, Oriented X3, Cooperative, No acute distress HEENT: Atraumatic, PERRLA, EOMI Respiratory: Clear to auscultation, Normal air movement Heart: Regular rate, No murmurs Abdominal: Normal bowel sounds, Soft, No tenderness Extremities: No edema Skin: No significant lesion Neuro: Normal speech Psych/Mental Status: Mental status NL Assessment/Plan Assessment/Plan History of colon cancer plan colonoscopy COURSE Allergies Coded Allergies Type Severity Reaction Last Updated Verified No Known Drug Allergies 12/22/14 No Current Medications Medications (Trade) Dose Ordered Sig/Jay Route PRN Reason Start Time Stop Time Status Last Admin Dose Admin Lactated Ringer's 1,000 ml @ 125 mls/hr Q8H IV 10/23/21 08:15 10/23/21 20:14 10/23/21 10:47 Acetaminophen (Tylenol) 650 mg 1X PACU PRN PO PAIN 10/23/21 08:15 10/24/21 08:14 Midazolam HCl (Versed) 1 mg PRN Q30MIN PRN IV Sedation 10/23/21 08:15 10/24/21 08:14 Ondansetron HCl (Zofran) 4 mg PRN Q6HRS PRN IV Nausea, 1st Choice 10/23/21 08:15 10/24/21 08:14 Diphenhydramine HCl (Benadryl) 12.5 mg PRN Q2HR PRN IV ITCHING 10/23/21 08:15 10/24/21 08:14 Albuterol Sulfate (Ventolin) 2.5 mg PRN 1X PRN NEB Shortness of Breath, Wheezing 10/23/21 08:15 10/24/21 08:14 Throat Lozenges (Chloraseptic) 1 spray PRN Q1HR PRN MM Sore Throat 10/23/21 08:15 10/24/21 08:14 Atropine Sulfate (ATROPINE 0.5mg SYRINGE) 0.5 mg PRN Q2MIN PRN IV BRADYCARDIA 10/23/21 08:15 10/24/21 08:14 Orders Procedure Category Date Status Time Vital Signs, Per GAIL 10/23/21 In Process Protocol 08:04 Pulse Ox - GAIL 10/23/21 In Process Intermittent 08:04 Iv Ringers PHA 10/23/21 In Process Solution,Lactated (Iv 08:15 Vital Signs, Per GAIL 10/23/21 In Process Protocol 08:04 Placement Assistant GAIL 10/23/21 In Process 08:04 Acetaminophen PHA 10/23/21 In Process (Tylenol) 08:15 Midazolam Hcl Pf PHA 10/23/21 In Process (Versed) 08:15 Ondansetron Pf PHA 10/23/21 In Process (Zofran) 08:15 Diphenhydramine PHA 10/23/21 In Process (Benadryl) 08:15 Albuterol Sulfate PHA 10/23/21 In Process (Ventolin) 08:15 Phenol Oral PHA 10/23/21 In Process (Chloraseptic) 08:15 Atropine Sulfate PHA 10/23/21 In Process (Atropine 0.5mg 08:15 Vital Signs Date Time Temp Pulse Resp B/P (MAP) Pulse Ox O2 Delivery O2 Flow Rate FiO2 10/23/21 10:35 97.4 67 16 153/80 (104) 97 Room Air Justification of Admission: Justification of Admission: Justification of Admission Dx: N/A YELENA SIMS MD Oct 23, 2021 11:08
[2021-10-23 12:00] VITALS: BP 159/77
--- NOTE | 2021-10-25 17:08 | PATHOLOGY ---
[facility] Accession Number: [id number] . 01 Material submitted: . colon - COLON POLYP BIOPSY AT 90CM . 01 Clinical history: . HX OF COLON CA . 02 Diagnosis: Colon biopsy, colon polyp at 90 cm: - Tubular adenoma. (JPM:jannet; 10/25/2021) S 10/25/2021 1527 Local . 02 Comment: There is no high grade dysplasia or evidence of malignancy. (JPM:jannet; 10/25/2021) . 02 Electronically signed: . Rahul Fish MD, Pathologist NPI- [id number] . 01 Gross description: . The specimen is received in formalin, labeled "Diego Braga, colon polyp BX at 90 cm". Received is a single segment of pale alonzo tissue measuring 0.4 cm in maximum dimension. The specimen is entirely submitted in cassette A1. ([facility]; 10/24/2021) NRI/NRI 10/24/2021 1744 Local . 02 Pathologist provided ICD-10: D12.6 . 02 CPT . 513525 Specimen Comment: A courtesy copy of this report has been sent to [phone] Specimen Comment: Report sent to Performed at: 01 [facility] [address], [place], [place] [id number] MD Chris Quan MD Phone: [phone] Performed at: 02 [facility] [address] [place], [place] [id number] MD Rahul Fish MD Phone: [phone]
== END | disposition home or self-care (01) ==
LOC: SURG 10:15
PROVIDERS: ATTEND Surgery
DX: Z12.11 Encounter for screening for malignant neoplasm of colon (principal); D12.2 Benign neoplasm of ascending colon; I25.10 Atherosclerotic heart disease of native coronary artery without angina pectoris; K21.9 Gastro-esophageal reflux disease without esophagitis; M19.90 Unspecified osteoarthritis, unspecified site; J44.9 Chronic obstructive pulmonary disease, unspecified; I10 Essential (primary) hypertension; Z86.010 Personal history of colon polyps; Z85.038 Personal history of other malignant neoplasm of large intestine; Z79.899 Other long term (current) drug therapy; Z79.82 Long term (current) use of aspirin; Z72.89 Other problems related to lifestyle; Z85.118 Personal history of other malignant neoplasm of bronchus and lung; Z87.891 Personal history of nicotine dependence; Z90.2 Acquired absence of lung [part of]
CPT/HCPCS: 45385; J2001; J2704; J7120; 45380; 88305

== ENCOUNTER → 2021-10-29 | Outpatient (CLI) | payer MEDICARE, OTHER ==
[2021-10-23 12:00] VITALS: BP 159/77
[~2021-10-29] MED LIST changes: -ACETAMINOPHEN 325 MG TABLET PO PRN; -ALBUTEROL SULFATE 2.5 MG/3 ML NEBU. NEB PRN; -ATROPINE 0.5 MG/5 ML DISP.SYRIN. IV PRN; -IV RINGERS SOLUTION,LACTATED 1,000 ML IV SCH; -LIDOCAINE 2% PF 5 ML VIAL. ONE; -MIDAZOLAM HCL PF 2 MG/2 ML VIAL. IV PRN; -ONDANSETRON PF 4 MG/2 ML VIAL. IV PRN; -PHENOL ORAL SPRAY 177ML BOTTLE. MM PRN; -PROPOFOL 10,000 MCG/ML (20ML) VIAL IV ONE; -diphenhydrAMINE 50 MG/ML VIAL IV PRN
[2021-10-29 10:16] LABS: BASO # 0.1 x10^3/uL (0.0-0.2); BASO % 1 % (0-3); EOS # 0.2 x10^3/uL (0.0-0.7); EOS % 2 % (0-3); HEMATOCRIT 42.6 % (39.0-53.0); HEMOGLOBIN 14.4 g/dL (13.0-17.5); LYMPH # 4.2 x10^3/uL (1.0-4.8); LYMPH % 39 % (24-48); MEAN CORPUSCULAR HEMOGLOBIN 33 pg (25-35); MEAN CORPUSCULAR HGB CONC 34 g/dL (31-37); MEAN CORPUSCULAR VOLUME 96 fL (79-100); MONO % 9 % (0-9); NEUT # 5.2 x10^3uL (1.8-7.7); NEUT % 49 % (31-73); PLATELET COUNT 294 x10^3/uL (140-400); RED BLOOD COUNT 4.45 x10^6/uL (4.30-5.70); WHITE BLOOD COUNT 10.7 x10^3/uL (4.0-11.0)
[2021-10-29 11:10] LABS: ALBUMIN 3.4 g/dL (3.4-5.0); CALCIUM 8.9 mg/dL (8.5-10.1); CREATININE 1.1 mg/dL (0.7-1.3); GFR 64.7; POTASSIUM 4.4 mmol/L (3.5-5.1); TOTAL BILIRUBIN 0.4 mg/dL (0.2-1.0); TOTAL PROTEIN 6.9 g/dL (6.4-8.2)
== END ==
LOC: LAB 09:38
PROVIDERS: ATTEND Internal Medicine Hematology & Oncology
DX: C20 Malignant neoplasm of rectum (principal)
CPT/HCPCS: 36415; 80053; 82378; 85025

== ENCOUNTER → 2021-12-09 | Outpatient (CLI) | payer MEDICARE, OTHER ==
[2021-10-23 12:00] VITALS: BP 159/77
[~2021-12-09] MED LIST changes: +IOHEXOL 240 MG/ML 50ML VIAL. ONE; +IOHEXOL 300 MG/ML 75 ML VIAL. IV ONE
--- NOTE | 2021-12-09 11:16 | RAD ---
EXAM: Chest, abdomen and pelvis CT with intravenous contrast. HISTORY: Lung and colon cancer. TECHNIQUE: Computed tomographic images of the chest, abdomen and pelvis were obtained following the a dministration of intravenous contrast. Multiplanar reformatting was performed. *One or more of the following individualized dose reduction techniques were utilized for this examina tion: 1. Automated exposure control. 2. Adjustment of the mA and/or kV according to patient size. 3. Use of iterative reconstruction technique. COMPARISON: 12/17/2020 and 12/28/2015. FINDINGS: Chest: The heart is normal in size. There is coronary artery calcification. There is aortic and aortic branch vessel atherosclerosis. No pathologically enlarged mediastinal or hilar lymph node is seen. There is no pneumothorax or pleural effusion. There is mild emphysema. There is right hemit horax volume loss due to partial right lung resection. There are associated right hilar and paratrach eal surgical clips. There is stable scarring along the right pleural fissure. There is a calcified gr anuloma within the posterior right lower lobe. There has been decrease in a 2 mm nodule within the an terior left upper lobe. There is degenerative change throughout the thoracic spine. This includes mul tiple bridging and partially bridging anterior osteophyte superimposed on endplate remodeling. There is no acute or suspicious osseous finding. Abdomen and pelvis: There is a stable 2.7 cm left hepatic cyst. There is also a stable suspected 3 mm cyst within the right hepatic lobe, too small to characterize. There is cholelithiasis. The pancreas , spleen and adrenal glands are unremarkable. There is a 2 mm nonobstructing left renal stone. There is a stable 7 mm simple left renal cyst. Follow-up is not routinely performed for simple cysts. There is no appendicitis. There is no bowel obstruction. There is a rectosigmoid surgical anastomosis. The re is a stable 1.4 cm nodule within the superolateral left peritoneum adjacent to the splenic flexure of the colon. The nearly 6 year course of stability of this finding favors a splenule rather than ly mph node or metastatic implant. There is aortic and aortic branch vessel atherosclerosis. The prostat e is enlarged. There is an inferior ventral abdominal wall hernia extending to a pannus, containing l oops of bowel, fat and a portion of the bladder. There are bilateral inguinal hernias. There is degen erative change throughout the spine and both hips. There is no acute or suspicious osseous finding. IMPRESSION: 1. No acute thoracic, abdominal or pelvic finding. 2. Stable findings consistent with partial right lung resection. There is no evidence of recurrent or residual lung malignancy. 3. Stable rectosigmoid anastomosis. There is no evidence of recurrent or residual colon malignancy. 4. Decrease in a 2 mm benign left upper lobe pulmonary nodule. 5. Please refer to the above report for incidental findings. Electronically signed by: Adela Hernandez MD (12/09/2021 11:13 AM) [id number]
== END ==
LOC: CT 08:57
PROVIDERS: ATTEND Internal Medicine Hematology & Oncology
DX: C20 Malignant neoplasm of rectum (principal); C34.91 Malignant neoplasm of unspecified part of right bronchus or lung; R91.1 Solitary pulmonary nodule; J43.9 Emphysema, unspecified; J84.10 Pulmonary fibrosis, unspecified; K76.89 Other specified diseases of liver; K80.20 Calculus of gallbladder without cholecystitis without obstruction; N28.1 Cyst of kidney, acquired; N40.0 Benign prostatic hyperplasia without lower urinary tract symptoms; K43.9 Ventral hernia without obstruction or gangrene; K40.20 Bilateral inguinal hernia, without obstruction or gangrene, not specified as recurrent; I25.10 Atherosclerotic heart disease of native coronary artery without angina pectoris; I70.0 Atherosclerosis of aorta
CPT/HCPCS: 71260; 74177; Q9967